=== PATIENT | female | born 1960 ===

== ENCOUNTER 2017-10-12 11:45 | Outpatient (REF) | payer MEDICAID, SELFPAY ==
[2017-10-12 20:16] LABS: HCT 36.5 % (36.0-46.0); Mean Corp. HGB Concentration 32.9 g/dL (32.0-36.0); Mean Corpuscular Hemoglobin 30.3 pg (27.0-33.0); Mean Corpuscular Volume 92.2 fL (80-95); Mean Platelet Volume 8.8 fL (8.0-11.0); Platelet Count 450 x1000/uL (130-400); RBC 3.96 m/cumm (4.00-5.20); RBC Distribution Width 15.4 % (11.7-14.6)
== END 2017-10-12 11:46 ==
LOC: NCHCN 11:45
PROVIDERS: PCP Family Medicine; Visit Provider Registered Nurse
DX: D64.9 Anemia, unspecified (principal)
CPT/HCPCS: 85027

== ENCOUNTER 2017-11-01 16:30 | Outpatient (REF) | payer MEDICAID, SELFPAY ==
[2017-11-01 22:22] LABS: HCT 37.1 % (36.0-46.0); HGB 12.1 g/dL (12.0-15.5); Mean Corp. HGB Concentration 32.6 g/dL (32.0-36.0); Mean Corpuscular Hemoglobin 29.2 pg (27.0-33.0); Mean Corpuscular Volume 89.6 fL (80-95); Mean Platelet Volume 9.1 fL (8.0-11.0); Platelet Count 415 x1000/uL (130-400); RBC 4.14 m/cumm (4.00-5.20); RBC Distribution Width 15.5 % (11.7-14.6); White Blood Cell Count 8.08 k/cumm (4.4-10.8)
[2017-11-01 22:27] LABS: Prothrombin Time 9.3 sec (9.3-10.8)
[2017-11-01 22:35] LABS: Hemoglobin A1C 5.5 % (4.5-6.2)
[2017-11-01 22:59] LABS: ALT 17 U/L (12-78); AST 17 U/L (15-37); Albumin 3.6 g/dL (3.4-5.0); Alkaline Phosphatase 108 U/L (46-116); Anion Gap 5.2 mmol/L (3-11); BUN 12 mg/dL (7-18); Bilirubin, Total 0.3 mg/dL (0.2-1.0); CO2 30.8 mmol/L (21.0-32.0); CREATININE 0.83 mg/dL (0.55-1.02); Calcium 8.7 mg/dL (8.5-10.1); Chloride 104 mmol/L (98-107); Glucose 103 mg/dL (70-100); Potassium 4.7 mmol/L (3.5-5.1); Sodium 140 mmol/L (136-145); Total Protein 7.5 g/dL (6.4-8.2)
[2017-11-01 23:20] LABS: GGT 28 U/L (5-55)
== END 2017-11-01 16:50 ==
LOC: NCHCN 16:30
PROVIDERS: PCP Family Medicine; Visit Provider Family Medicine
DX: F10.10 Alcohol abuse, uncomplicated (principal); R73.09 Other abnormal glucose; D47.3 Essential (hemorrhagic) thrombocythemia
CPT/HCPCS: 80053; 85027; 82977; 83036; 85610

== ENCOUNTER 2018-01-22 14:36 | Outpatient (REF) | payer MEDICAID, SELFPAY ==
[2018-01-22 21:19] LABS: Abs Immature Grans 0.06 k/cumm (0.0-0.09); Absolute Basophil Count 0.09 k/cumm (0.0-0.2); Absolute Eosinophil Count 0.11 k/cumm (0.0-0.7); Absolute Lymphocyte Count 2.86 k/cumm (1.2-3.4); Absolute Monocyte Count 0.76 k/cumm (0.11-0.7); Absolute Neutrophil Count 5.57 k/cumm (1.2-6.7); Eosinophils % 1.2; HCT 36.6 % (36.0-46.0); HGB 12.4 g/dL (12.0-15.5); Immature Grans % 0.6; Lymphocytes % 30.3; Mean Corp. HGB Concentration 33.9 g/dL (32.0-36.0); Mean Corpuscular Hemoglobin 29.2 pg (27.0-33.0); Mean Corpuscular Volume 86.3 fL (80-95); Mean Platelet Volume 8.6 fL (8.0-11.0); Neutrophils % 58.9; Platelet Count 575 x1000/uL (130-400); RBC 4.24 m/cumm (4.00-5.20); RBC Distribution Width 16.8 % (11.7-14.6); White Blood Cell Count 9.45 k/cumm (4.4-10.8)
[2018-01-22 21:31] LABS: ALT 25 U/L (12-78); AST 15 U/L (15-37); Albumin 3.2 g/dL (3.4-5.0); Alkaline Phosphatase 138 U/L (46-116); Anion Gap 11.4 mmol/L (3-11); BUN 14 mg/dL (7-18); Bilirubin, Total 0.4 mg/dL (0.2-1.0); CREATININE 0.88 mg/dL (0.55-1.02); Calcium 8.9 mg/dL (8.5-10.1); Chloride 99 mmol/L (98-107); Glucose 100 mg/dL (70-100); Lipase 122 U/L (73-393); Potassium 3.9 mmol/L (3.5-5.1); Sodium 134 mmol/L (136-145); Total Protein 6.7 g/dL (6.4-8.2)
[2018-01-22 21:42] LABS: CO2 24.6 mmol/L (21.0-32.0)
[2018-01-22 22:32] LABS: Anisocytosis 1+; Diff Comment Diff Reviewed
== END 2018-01-22 14:56 ==
LOC: NCHCN 14:36
PROVIDERS: PCP Family Medicine; Visit Provider Registered Nurse
DX: R19.7 Diarrhea, unspecified (principal); R10.9 Unspecified abdominal pain
CPT/HCPCS: 80053; 83690; 85025

== ENCOUNTER 2018-06-19 11:26 | Outpatient (REF) | payer MEDICAID, SELFPAY ==
[2018-06-19 22:17] LABS: Hemoglobin A1C 5.6 % (4.5-6.2)
[2018-06-21 11:33] LABS: Measles IgG Antibody Positive
== END 2018-06-19 11:46 ==
LOC: NCHCN 11:26
PROVIDERS: PCP Family Medicine; Visit Provider Family Medicine
DX: R73.09 Other abnormal glucose (principal); Z00.00 Encounter for general adult medical examination without abnormal findings; Z01.84 Encounter for antibody response examination
CPT/HCPCS: 83036; 86765

== ENCOUNTER 2019-04-25 12:37 | Outpatient (REF) | payer MEDICAID, SELFPAY ==
[2019-04-25 21:35] LABS: HCT 36.9 % (36.0-46.0); HGB 11.8 g/dL (12.0-15.5); Mean Corpuscular Hemoglobin 28.6 pg (27.0-33.0); Mean Corpuscular Volume 89.6 fL (80-95); Mean Platelet Volume 9.6 fL (8.0-11.0); Platelet Count 464 x1000/uL (130-400); RBC 4.12 m/cumm (4.00-5.20); RBC Distribution Width 19.6 % (11.7-14.6); White Blood Cell Count 8.93 k/cumm (4.4-10.8)
[2019-04-25 21:54] LABS: Iron 43 ug/dL (50-170)
[2019-04-25 22:02] LABS: Hemoglobin A1C 5.8 % (3.8-5.6)
[2019-04-25 22:14] LABS: ALT 28 U/L (14-59); AST 16 U/L (15-37); Albumin 3.7 g/dL (3.4-5.0); Alkaline Phosphatase 93 U/L (46-116); Anion Gap 8.4 mmol/L (3-11); BUN 10 mg/dL (7-18); Bilirubin, Total 0.5 mg/dL (0.2-1.0); CO2 25.6 mmol/L (21.0-32.0); CREATININE 0.77 mg/dL (0.55-1.02); Calcium 9.2 mg/dL (8.5-10.1); Chloride 107 mmol/L (98-107); Ferritin 14 ng/mL (8-252); Folate > 20.0 ng/mL (8.6-20.0); Glucose 115 mg/dL (74-106); Sodium 141 mmol/L (136-145); Total Protein 6.9 g/dL (6.4-8.2); Vitamin B12 802 pg/mL (193-986)
== END 2019-04-25 12:57 ==
LOC: NCHCN 12:37
PROVIDERS: PCP Family Medicine; Visit Provider Family Medicine
DX: D64.9 Anemia, unspecified (principal); R73.03 Prediabetes; F10.10 Alcohol abuse, uncomplicated
CPT/HCPCS: 80053; 85027; 82607; 82728; 82746; 83036; 83540